=== PATIENT | male | born 1965 | race Caucasian/White ===

== ENCOUNTER 2021-10-23 21:52 | Observation (INO) ==
[2021-10-24] MEDS ORDERED: Isovue-370 500 ML BOTTLE IVP ONE (01:20)
[2021-10-24] MEDS ORDERED: 0.9 % Sodium Chloride 1,000 ML IV ONE ×2 (01:23→04:43)
[2021-10-24] MEDS ORDERED: Ondansetron 4 MG/2 ML VIAL IVP PRN (01:23)
[2021-10-24] MEDS ORDERED: Morphine Sulfate 2 MG/ML SYRINGE IVP ONE (01:23)
[2021-10-24 01:49] LABS: Bacteria,Urine Few per hpf (None-Few); Bilirubin,Urine Negative (Negative); Blood,Urine Negative (Negative); Clarity,Urine Clear (Clear); Color,Urine Yellow (Yellow); Glucose,Urine (UA) Normal (Normal); Ketones,Urine 20 mg/dL (Negative); Leukocyte Esterase,Urine Negative (Negative); Mucus,Urine Few per lpf (None-Few); Nitrite,Urine Negative (Negative); PH,Urine 6.5 pH Units (5.0-8.0); Protein,Urine 100 mg/dL (Neg-Trace); Specific Gravity,Urine 1.028 (1.010-1.025); Urobilinogen,Urine Normal (Normal); WBC,Urine 0-3 per hpf (0-3)
[2021-10-24 01:50] LABS: Basophils % 0.3 %; Eosinophils % 0.2 %; Hematocrit 54.2 % (37.5-50.1); Hemoglobin 18.7 g/dL (12.9-16.9); Immature Granulocytes % 0.2 % (0-4); Lymphocytes # 0.8 K/mcL (0.6-4.6); Lymphocytes % 6.5 %; Mean Corpuscular HGB Conc 34.5 g/dL (31.6-35.5); Mean Corpuscular Hemoglobin 28.7 pg (28.0-33.3); Mean Corpuscular Volume 83.1 fL (83.0-100.0); Mean Platelet Volume 10.9 fL (9.4-12.4); Monocytes # 0.6 K/mcL (0.0-1.3); Neutrophils # 10.7 K/mcL (1.6-8.9); Platelet Count 240 K/mcL (140-400); Red Blood Count 6.52 M/mcL (4.19-5.50); Red Cell Distribution Width 13.4 % (11.5-14.5); Segmented Neutrophils % 87.8 %; White Blood Count 12.2 K/mcL (4.3-11.1)
[2021-10-24 02:14] LABS: Alanine Aminotransferase 18 Units/L (7-52); Albumin 4.8 g/dL (3.5-5.7); Albumin/Globulin Ratio 1.5 (1.1-2.2); Alkaline Phosphatase 96 Units/L (34-104); Amylase 31 Units/L (29-103); Aspartate Amino Transferase 15 Units/L (13-39); BUN/Creatinine Ratio 10 (6-26); Bilirubin,Direct 0.1 mg/dL (0.0-0.2); Bilirubin,Indirect 0.8 mg/dL (0.0-1.0); Bilirubin,Total 0.9 mg/dL (0.3-1.0); Blood Urea Nitrogen 9 mg/dL (6-20); Calcium 9.9 mg/dL (8.6-10.3); Carbon Dioxide 28 mEq/L (23-29); Chloride 97 mEq/L (98-107); Globulin 3.1 g/dL (2.4-3.5); Glucose 143 mg/dL (70-105); Lipase 12 Units/L (11-82); Osmolality,Calculated 283 (280-300); Potassium 4.1 mEq/L (3.5-5.1); Sodium 136 mEq/L (136-145); Total Protein 7.9 g/dL (6.4-8.9); Troponin I < 0.03 ng/mL (< 0.04); eGFR For African Americans > 60 (> 60); eGFR For Non-African Americans > 60 (> 60)
[2021-10-24 02:45] LABS: INR 1.2; Prothrombin Time 13.2 Seconds (9.4-12.1)
[2021-10-24] MEDS ORDERED: Naloxone 0.4 MG/ML INJ IVP PRN (05:35)
[2021-10-24 05:41] LABS: Influenza A PCR Negative (Negative); Influenza B PCR Negative (Negative); Resp. Syncytial Virus PCR Negative (Negative)
[2021-10-24] MEDS ORDERED: 0.9 % Sodium Chloride 1,000 ML IVC SCH (05:45)
[2021-10-24 05:46] LABS: SARS-CoV-2 by PCR (In House) Negative (Negative)
[2021-10-24] MEDS ORDERED: Ketorolac 30 MG/ML VIAL IVP PRN (06:33)
[2021-10-24 08:16] LABS: Basophils % 0.4 %; Eosinophils # 0.2 K/mcL (0.0-0.6); Eosinophils % 1.5 %; Hematocrit 47.5 % (37.5-50.1); Immature Granulocytes % 0.3 % (0-4); Lymphocytes # 1.5 K/mcL (0.6-4.6); Lymphocytes % 13.8 %; Mean Corpuscular HGB Conc 33.5 g/dL (31.6-35.5); Mean Corpuscular Hemoglobin 28.2 pg (28.0-33.3); Mean Corpuscular Volume 84.2 fL (83.0-100.0); Mean Platelet Volume 10.6 fL (9.4-12.4); Monocytes # 1.1 K/mcL (0.0-1.3); Monocytes % 10.2 %; Neutrophils # 8.1 K/mcL (1.6-8.9); Platelet Count 199 K/mcL (140-400); Red Blood Count 5.64 M/mcL (4.19-5.50); Red Cell Distribution Width 13.2 % (11.5-14.5); Segmented Neutrophils % 73.8 %
[2021-10-24 08:19] LABS: Hemoglobin 15.9 g/dL (12.9-16.9)
[2021-10-24 08:32] LABS: BUN/Creatinine Ratio 11 (6-26); Blood Urea Nitrogen 9 mg/dL (6-20); Calcium 8.6 mg/dL (8.6-10.3); Carbon Dioxide 30 mEq/L (23-29); Chloride 103 mEq/L (98-107); Glucose 116 mg/dL (70-105); Osmolality,Calculated 286 (280-300); Potassium 3.8 mEq/L (3.5-5.1); Sodium 138 mEq/L (136-145); eGFR For African Americans > 60 (> 60); eGFR For Non-African Americans > 60 (> 60)
[2021-10-24] MEDS: Ondansetron 4 MG/2 ML VIAL IVP PRN (15:05)
[2021-10-25] MEDS: Ondansetron 4 MG/2 ML VIAL IVP PRN (20:19)
[2021-10-26] MEDS ORDERED: Isovue-370 500 ML BOTTLE IVP ONE (09:13)
[2021-10-26] MEDS: diazePAM 10 MG TABLET PO SCH ×2 (09:34→20:57)
[2021-10-26] MEDS ORDERED: Isovue-370 500 ML BOTTLE PO ONE (09:36)
[2021-10-26 23:38] LABS: Adenovirus F 40/41 PCR Not detected (Not detect); Astrovirus PCR Not detected (Not detect); C.difficile Toxin A/B Gene PCR Not detected (Not detect); Campylobacter by PCR Not detected (Not detect); Cryptosporidium by PCR Not detected (Not detect); Cyclospora cayetanensis PCR Not detected (Not detect); E. coli O157 by PCR Not detected (Not detect); Entamoeba histolytica PCR Not detected (Not detect); Enteroaggregative E.coli(EAEC) Not detected (Not detect); Enteropathogenic E.coli(EPEC) Not detected (Not detect); Enterotoxigenic E.coli (ETEC) Not detected (Not detect); Giardia lamblia PCR Not detected (Not detect); Norovirus GI/GII PCR Not detected (Not detect); Plesiomonas shigelloides PCR Not detected (Not detect); Rotavirus A PCR Not detected (Not detect); Salmonella PCR Not detected (Not detect); Sapovirus PCR Not detected (Not detect); Shig/EnteroinvasiveE coli EIEC Not detected (Not detect); Shigalike tox-prod E coli STEC Not detected (Not detect); Vibrio PCR Not detected (Not detect); Vibrio cholerae PCR Not detected (Not detect); Yersinia enterocolitica PCR Not detected (Not detect)
[2021-10-27 04:37] LABS: Basophils % 0.5 %; Eosinophils # 0.2 K/mcL (0.0-0.6); Eosinophils % 3.6 %; Hematocrit 41.9 % (37.5-50.1); Immature Granulocytes % 0.2 % (0-4); Lymphocytes # 1.3 K/mcL (0.6-4.6); Lymphocytes % 22.9 %; Mean Corpuscular HGB Conc 33.2 g/dL (31.6-35.5); Mean Corpuscular Hemoglobin 28.2 pg (28.0-33.3); Mean Platelet Volume 10.8 fL (9.4-12.4); Monocytes # 0.6 K/mcL (0.0-1.3); Monocytes % 9.6 %; Neutrophils # 3.7 K/mcL (1.6-8.9); Platelet Count 170 K/mcL (140-400); Red Blood Count 4.93 M/mcL (4.19-5.50); Red Cell Distribution Width 13.2 % (11.5-14.5); Segmented Neutrophils % 63.2 %; White Blood Count 5.8 K/mcL (4.3-11.1)
[2021-10-27 04:43] LABS: Hemoglobin 13.9 g/dL (12.9-16.9)
[2021-10-27 04:50] LABS: Alanine Aminotransferase 9 Units/L (7-52); Albumin 3.5 g/dL (3.5-5.7); Albumin/Globulin Ratio 1.6 (1.1-2.2); Alkaline Phosphatase 62 Units/L (34-104); Aspartate Amino Transferase 10 Units/L (13-39); BUN/Creatinine Ratio 10 (6-26); Bilirubin,Total 0.4 mg/dL (0.3-1.0); Blood Urea Nitrogen 8 mg/dL (6-20); Calcium 8.3 mg/dL (8.6-10.3); Carbon Dioxide 27 mEq/L (23-29); Chloride 104 mEq/L (98-107); Globulin 2.2 g/dL (2.4-3.5); Glucose 112 mg/dL (70-105); Osmolality,Calculated 283 (280-300); Potassium 3.4 mEq/L (3.5-5.1); Sodium 137 mEq/L (136-145); Total Protein 5.7 g/dL (6.4-8.9); eGFR For African Americans > 60 (> 60); eGFR For Non-African Americans > 60 (> 60)
[2021-10-27] MEDS: diazePAM 10 MG TABLET PO SCH (07:14)
[2021-10-27 07:23] VITALS: BP 111/71; PULSE 66; TEMP 97.6; O2SAT 95
== END 2021-10-27 11:24 | disposition home or self-care (01) ==
LOC: EMEROOARM 21:52 → CDU 21:52 → SUATTDRO 10-24 05:39 → CDU 10-24 07:46 → 4WAOSI 10-24 14:28
PROVIDERS: ADMIT Internal Medicine; ATTEND Internal Medicine